=== PATIENT | female | born 1980 | race Two or more races ===

== ENCOUNTER 2019-08-07 11:44 | Emergency (ER) | payer MEDICAID ==
[~2019-08-07] VITALS: Ht 160 cm; Wt 74.8 kg
[2019-08-07 11:53] VITALS: BP 157/108
[2019-08-07] MEDS ORDERED: KETOROLAC TROMETHAMINE INJ 30 MG/ML VIAL ONE (12:28)
[2019-08-07] MEDS ORDERED: KETOROLAC TROMETHAMINE INJ 60 MG/2 ML VIAL IM ONE ×2 (12:30)
== END 2019-08-07 13:57 | disposition home or self-care (01) ==
LOC: ER 11:44
DX: M72.2 Plantar fascial fibromatosis (principal)
CPT/HCPCS: 73610; 73630; 96372; 99283; J1885

== ENCOUNTER 2023-07-16 19:09 | Emergency (ER) | payer MEDICAID ==
[~2023-07-16] VITALS: Ht 160 cm; Wt 70.8 kg
[2023-07-16] MEDS ORDERED: KETOROLAC TROMETHAMINE INJ 30 MG/ML VIAL ONE (19:44)
[2023-07-16] MEDS ORDERED: KETOROLAC TROMETHAMINE INJ 60 MG/2 ML VIAL IM ONE (20:00)
[2023-07-16] MEDS ORDERED: IBUP-1955 PO (21:19)
[2023-07-16] MEDS ORDERED: CYCL10TA9 PO (21:19)
[2023-07-16 21:23] VITALS: BP 131/91; TEMP 98; O2SAT 98
== END 2023-07-16 21:23 | disposition home or self-care (01) ==
LOC: ER 19:10
DX: S16.1XXA Strain of muscle, fascia and tendon at neck level, initial encounter (principal); S86.811A Strain of other muscle(s) and tendon(s) at lower leg level, right leg, initial encounter; S46.811A Strain of other muscles, fascia and tendons at shoulder and upper arm level, right arm, initial encounter; S39.012A Strain of muscle, fascia and tendon of lower back, initial encounter; E11.9 Type 2 diabetes mellitus without complications; Z79.899 Other long term (current) drug therapy; V49.49XA Driver injured in collision with other motor vehicles in traffic accident, initial encounter; Y93.89 Activity, other specified; Y92.89 Other specified places as the place of occurrence of the external cause; Y99.8 Other external cause status
CPT/HCPCS: 99284; 96372; 72040; 72100; 73564; 73030; J1885